=== PATIENT | female | born 1960 | race Two or more races ===

== ENCOUNTER → 2025-07-28 | Emergency (ER) | payer OTHER ==
[~2025-07-28] VITALS: Ht 160 cm; Wt 64.4 kg
[~2025-07-28] MED LIST: ACTEMRA AC162 MG/0.9 IM; DEXAMETHASONE SODIUM PHOSPHATE 4 MG/ML VIAL IM ONE; DEXAMETHASONE SODIUM PHOSPHATE 4 MG/ML VIAL ONE; ROSUVASTATIN CA10 MG PO
[2025-07-28 21:06] LABS: BASO % 0.2 % (0.1-1.2); EOS # 0.01 (0.04-0.54); EOS % 0.1 % (0.7-7.0); LYMPH # 0.93 (1.18-3.74); LYMPH % 7.2 % (19.3-53.1); MEAN PLATELET VOLUME 10.40 fl (9.4-12.4); MONO # 0.71 (0.24-0.82); MONO % 5.5 % (4.7-12.5); NEUT # 11.11 (1.56-6.13); NEUT % 86.6 % (34.0-71.1); RED CELL DISTRIBUTION WIDTH 13.1 % (11.6-14.4)
[2025-07-28 21:31] LABS: ERYTHROCYTE SEDIMENTATION RATE 25 mm/hr (0-30)
== END | disposition home or self-care (01) ==
LOC: ER 16:47
PROVIDERS: General Practice
DX: M31.6 Other giant cell arteritis (principal); Z88.8 Allergy status to other drugs, medicaments and biological substances; Z85.3 Personal history of malignant neoplasm of breast
CPT/HCPCS: 96365; 96372; 99282; J1100; J3490